=== PATIENT | female | born 1985 ===

== ENCOUNTER → 2018-03-09 | Outpatient (CLI) | payer OTHER ==
[2018-03-13 15:07] LABS: HPV 16 Negative (Negative); HPV 18 Negative (Negative); HPV OTHER HR TYPES Negative (Negative)
== END | disposition home or self-care (01) ==
LOC: LAB SHORT 10:15 → LAB 10:15
PROVIDERS: Advanced Practice Midwife
DX: Z34.00 Encounter for supervision of normal first pregnancy, unspecified trimester (principal)
CPT/HCPCS: 87624; G0123

== ENCOUNTER → 2018-08-23 | Outpatient (CLI) | payer OTHER | END | disposition home or self-care (01) | LOC: LAB 14:48 → LAB SHORT 14:48 | DX: Z34.00 Encounter for supervision of normal first pregnancy, unspecified trimester (principal) | CPT/HCPCS: 87081; 87653 ==

== ENCOUNTER → 2018-09-12 | Outpatient (CLI) | payer OTHER ==
[2018-09-12 13:32] LABS: Protein, Urine Quantitative 6.6 mg/dL (0.0-11.9)
== END | disposition home or self-care (01) ==
LOC: LAB SHORT 11:38 → LAB 11:38 → LAB FUT 09-10 15:20
PROVIDERS: Advanced Practice Midwife
DX: O09.519 Supervision of elderly primigravida, unspecified trimester (principal)
CPT/HCPCS: 81050; 84156

== ENCOUNTER 2018-09-20 18:11 | Inpatient (IN) | payer OTHER ==
[~2018-09-20] VITALS: Ht 172.7 cm; Wt 0.3 kg
[2018-09-20] MEDS ORDERED: Verotin-Gr Cap1 EACH (18:27)
[2018-09-20] MEDS ORDERED: Verotin-Gr Cap1 EACH PO (18:27)
[2018-09-20 19:15] LABS: BASOPHILS ABSOLUTE AUTO 0.04 K/mm3 (0.00-0.23); BASOPHILS PERCENT AUTO 0 % (0-2); EOSINOPHILS ABSOLUTE AUTO 0.06 K/mm3 (0.00-0.68); EOSINOPHILS PERCENT AUTO 1 % (0-6); Hemoglobin 12.8 g/dL (11.5-16.0); IMMATURE GRAN ABSOLUTE AUTO 0.06 K/mm3 (0.00-0.10); IMMATURE GRAN PERCENT AUTO 1 % (0-1); LYMPHOCYTES PERCENT AUTO 16 % (21-46); MONOCYTES ABSOLUTE AUTO 0.51 K/mm3 (0.16-1.47); MONOCYTES PERCENT AUTO 6 % (4-13); Mean Corpuscular HGB 30.9 pg (26.0-34.0); Mean Corpuscular HGB Conc 34.6 g/dL (31.5-36.5); Mean Corpuscular Volume 89 fL (80-100); Mean Platelet Volume 10.4 fL (9.1-12.4); NEUTROPHILS ABSOLUTE AUTO 7.12 K/mm3 (1.96-9.15); NEUTROPHILS PERCENT AUTO 77 % (41-73); Platelet Count 248 K/mm3 (150-400); RDW Standard Deviation 39.1 fL (35.1-46.3); Red Blood Cell Count 4.14 M/mm3 (3.80-5.20); White Blood Cell Count 9.29 K/mm3 (4.00-11.30)
[2018-09-22 05:29] LABS: Hematocrit 30.2 % (33.0-51.0); Hemoglobin 10.4 g/dL (11.5-16.0); Mean Corpuscular HGB Conc 34.4 g/dL (31.5-36.5); Mean Corpuscular Volume 90 fL (80-100); Mean Platelet Volume 10.1 fL (9.1-12.4); Platelet Count 199 K/mm3 (150-400); RDW Coefficient Variation 12.2 % (11.7-14.2); Red Blood Cell Count 3.35 M/mm3 (3.80-5.20); White Blood Cell Count 16.34 K/mm3 (4.00-11.30)
--- NOTE | 2018-09-22 10:20 | NUR ---
PT'S AM BLOOD PRESSURE LOW OF 86/42. PATIENT'S BASELINE IS HYPOTENSIVE. PT WAS AWOKEN FROM A DEEP SLEEP. PT IS ASYMPTOMATIC, NOT LIGHT HEADED, NOT DIZZY. PT STATES SHE FEELS WELL. PT'S FUNDUS IS FIRM UPON PALPATION AND PERINEUM BLEEDING IS SCANT. WILL CONTINUE TO MONITOR.
--- NOTE | 2018-09-22 16:37 | NUR ---
DISCHARGE INSTRUCTIONS GIVEN TO PATIENT. ALL QUESTIONS ANSWERED.
--- NOTE | 2018-09-22 17:45 | NUR ---
PATIENT BEING ESCORTED TO VEHICLE AT THIS TIME. DISCHARGING HOME.
== END 2018-09-22 17:45 | disposition home or self-care (01) | DRG 807 ==
LOC: OBS 18:11 → BC 18:11 → OBS 18:26 → BC 18:28
PROVIDERS: ADMIT Advanced Practice Midwife
PROC: 3E033VJ Introduction of Other Hormone into Peripheral Vein, Percutaneous Approach (ICD-10-PCS; 2018-09-20)
PROC: 10E0XZZ Delivery of Products of Conception, External Approach (ICD-10-PCS; principal; 2018-09-21)
PROC: 0HQ9XZZ Repair Perineum Skin, External Approach (ICD-10-PCS; 2018-09-21)
DX: O42.02 Full-term premature rupture of membranes, onset of labor within 24 hours of rupture (principal); Z37.0 Single live birth; O70.0 First degree perineal laceration during delivery; Z3A.41 41 weeks gestation of pregnancy; O13.4 Gestational [pregnancy-induced] hypertension without significant proteinuria, complicating childbirth
CPT/HCPCS: 36415; 85025; 85027; J1885; J2210; J2590; J7120

== ENCOUNTER → 2018-11-09 | Outpatient (CLI) | payer OTHER ==
[~2018-11-09] MED LIST: Verotin-Gr Cap1 EACH; Verotin-Gr Cap1 EACH PO
[2018-11-10 13:44] LABS: Candida species (DNA Probe) Negative (NEGATIVE); G. vaginalis (DNA Probe) Positive (NEGATIVE); T. vaginalis (DNA Probe) Negative (NEGATIVE)
== END | disposition home or self-care (01) ==
LOC: LAB SHORT 11:34 → LAB 11:34
PROVIDERS: Advanced Practice Midwife
DX: N76.0 Acute vaginitis (principal)
CPT/HCPCS: 87480; 87510; 87660

== ENCOUNTER 2025-01-03 08:39 | Day surgery (SDC) | payer OTHER ==
[~2025-01-03] VITALS: Ht 172.7 cm; Wt 67.7 kg
[~2025-01-03 08:39] MED LIST changes: +Lactated Ringer's 1,000 ML IV ONE; +propofoL 40 ML IV ONE
[2025-01-03] MEDS ORDERED: CeFAZolin Sodium 2,000 MG VIAL ONE (08:49)
[2025-01-03] MEDS ORDERED: FentaNYL Citrate 50 MCG/ML 2 ML Injection ONE (08:57)
[2025-01-03] MEDS ORDERED: Midazolam HCl 1MG / ML 2ML Vial ONE (08:57)
[2025-01-03] MEDS ORDERED: ASCO500 PO (09:09)
[2025-01-03] MEDS ORDERED: BOSWELLIA PO (09:10)
[2025-01-03] MEDS ORDERED: ACET500 PO (09:11)
[2025-01-03] MEDS ORDERED: IBUP200 PO (09:11)
[2025-01-03] MEDS ORDERED: Bupivacaine 0.5% W/EPI 1:200000 SDV 30 ML Vial ONE (09:11)
[2025-01-03] MEDS ORDERED: Lactated Ringer's 1,000 ML IV ONE (09:22)
[2025-01-03] MEDS ORDERED: Ondansetron HCl 2 MG / ML 2ML Vial ONE (09:47)
[2025-01-03] MEDS ORDERED: Dexamethasone Sod Phos 10 MG/ML 1ML VIAL ONE (09:47)
--- NOTE | 2025-01-03 09:49 | NUR ---
01/03/25 0949 Winston Lam TIME OUT AT 0932. DR RIVAS PERFORMS NERVE BLOCK. PT TOLERATED WELL.
[2025-01-03] MEDS ORDERED: propofoL 20 ML IV ONE (09:53)
[2025-01-03] MEDS ORDERED: ePHEDrine Sulfate 50 MG/ML 1ML Injection ONE (10:06)
[2025-01-03] MEDS ORDERED: Sugammadex Sodium 200 MG/2ML SDV (100 MG/ML) ONE (10:43)
--- NOTE | 2025-01-03 11:17 | NUR ---
01/03/25 1117 ANTIONE DYER PT VERY TALKATIVE.
[2025-01-03 11:25] VITALS: BP 113/77
== END 2025-01-03 12:20 | disposition home or self-care (01) ==
LOC: ORSCSDS 08:39
PROVIDERS: Podiatrist Foot & Ankle Surgery
PROC: 0LQN0ZZ Repair Right Lower Leg Tendon, Open Approach (ICD-10-PCS; principal; 2025-01-03 10:00)
DX: S86.011A Strain of right Achilles tendon, initial encounter (principal); Y93.02 Activity, running
CPT/HCPCS: A6253; C1713; J0690; J1100; J2250; J2405; J2704; J3010; J7120